=== PATIENT | female | born 1995 | race Caucasian/White ===

== ENCOUNTER 2016-08-08 00:09 | Emergency (ER) | payer MEDICAID, OTHER ==
[~2016-08-08] VITALS: Ht 162.6 cm; Wt 60.0 kg
[~2016-08-08 00:09] MED LIST: AUGM875T PO
[2016-08-08 00:12] VITALS: BP 121/67; PULSE 94; RESP 20; TEMP 98.6; O2SAT 98
[2016-08-08 03:04] LABS: AUTOMATED NEUTROPHIL # 3.6 TH/MM3 (1.8-7.7); BASOPHIL # 0.1 TH/MM3 (0-0.2); BASOPHIL % 1.3 % (0.0-2.0); EOSINOPHIL # 0.2 TH/MM3 (0-0.4); HEMATOCRIT 39.2 % (35.0-46.0); HEMO FLAGS DIFF FINAL; LYMPH % 42.6 % (9.0-44.0); LYMPHOCYTE # 3.4 TH/MM3 (1.0-4.8); MEAN CELL VOLUME 85.3 FL (80.0-100.0); MEAN CORPUSCULAR HEMOGLOBIN 29.9 PG (27.0-34.0); MEAN CORPUSCULAR HGB CONC 35.1 % (32.0-36.0); MONO % 8.8 % (0.0-8.0); NEUT % 45.3 % (16.0-70.0); PLATELET COUNT 204 TH/MM3 (150-450); RED CELL DISTRIBUTION WIDTH 15.7 % (11.6-17.2); WHITE BLOOD COUNT 7.9 TH/MM3 (4.0-11.0)
[2016-08-08 03:10] LABS: BLOOD, URINE NEG (NEG); GLUCOSE,URINE NEG (NEG); KETONE, URINE NEG (NEG); NITRITE,URINE NEG (NEG); PH, URINE 6.5 (5.0-8.5); SQUAMOUS EPITHELIAL CELL URINE 1 /hpf (0-5); URINE COLOR LIGHT-YELLOW (YELLW/STRAW)
[2016-08-08 03:23] LABS: ALT (GPT) 19 U/L (9-42); ANION GAP 7 MEQ/L (5-15); AST (GOT) 11 U/L (16-38); BLOOD UREA NITROGEN 13 MG/DL (7-18); CHLORIDE 108 MEQ/L (98-107); COMMENT (UR) CULT NOT INDICATED; CULTURE IF INDICATED CULT NOT INDICATED; GLOMERULAR FILTRATION RATE 125 ML/MIN (>89); POTASSIUM 3.4 MEQ/L (3.5-5.1); SODIUM (NA) 141 MEQ/L (136-145)
[2016-08-08 03:25] LABS: ALKALINE PHOSPHATASE 60 U/L (45-117); TOTAL BILIRUBIN ADULT 0.5 MG/DL (0.2-1.0)
--- NOTE | 2016-08-08 03:31 | PD ---
HPI Chief Complaint: [employer] Management Keyholder Problem/Complaint Time Seen by Provider: 03:31 Travel History International Travel<30 days: No Contact w/Intl Traveler<30days: No Traveled to known affect area: No History of Present Illness HPI 20-year-old female presents to the emergency department for multiple complaints. Patient complains of headache that occurs sporadically seconds in duration sharp in nature and is unable to identify exacerbating or alleviating factors. Patient also complains of nasal congestion that she's had for several months and is concerned that she may have a cold or allergies. Patient also complains of lower abdominal pain and pelvic pain. Patient reports she has had ectopic pregnancies in the past 3 no longer has a left ovary and her last period was one month ago and she continues to remain sexually active without contraception. Patient denies dysuria frequency or urgency. Patient's had no fever or chills. Patient denies any sudden onset worst of her thunderclap headache. Patient has had nasal congestion no sore throat no earache no productive cough no shortness of breath no pleuritic pain no chest pain no generalized abdominal pain no flank pain dysuria frequency urgency or hematuria. Patient also denies abnormal vaginal discharge or abnormal vaginal bleeding. Patient rates pain when present 6-7/10 in intensity. Patient is unable to identify exacerbating or alleviating factors. PFSH Past Medical History Narrative Medical Anxiety depression left oophorectomy alcohol withdrawal seizure AB 3; tobacco use; nursing notes reviewed ADHD: No Autoimmune Disease: No Anxiety: Yes Depression: Yes Cancer: No Cardiovascular Problems: No Developmental Delay: No Diabetes: No Diminished Hearing: No Gastrointestinal Disorders: No Genitourinary: No Musculoskeletal: No Psychiatric: Yes (DEPRESSION) Respiratory: No Immunizations Current: Yes Migraines: No Seizures: Yes (from alcohol abuse) Thyroid Disease: No Ulcer: No Tetanus Vaccination: Unknown Influenza Vaccination: No PNEUMOCCOCAL Vaccine (Year): 3 ?: Unknown LMP: 07/06/16 : 4 Para: 0 Miscarriage: 3 Ectopic : Yes (X3 LT TUBE REMOVAL) Dilation and Curettage (D&C): Yes (03/2012) Past Surgical History Pacemaker: No Other Surgery: Yes (d&c) Social History Alcohol Use: Yes (TWICE WEEKLY) Tobacco Use: Yes (2 PPD) Substance Use: No Allergies-Medications (Allergen,Severity, Reaction): Coded Allergies: Latex (Verified Allergy, Severe, RASH, 08/08/16) Reported Meds & Prescriptions Reported Meds & Active Scripts Active Anaprox DS (Naproxen Sodium) 550 Mg Tab 550 Mg PO Q12HR PRN Review of Systems Except as stated in HPI: all other systems reviewed are Neg General / Constitutional: No: Fever, Chills Eyes: No: Diploplia, Visual changes HENT: Positive: Headaches, Congestion, No: Vertigo, Lightheadedness, Sore Throat, Rhinorrhea, Nosebleed, Neck Pain Cardiovascular: No: Chest Pain or Discomfort Respiratory: No: Shortness of Breath Gastrointestinal: Positive: Abdominal Pain, No: Nausea, Vomiting, Diarrhea Genitourinary: No: Urgency, Frequency, Dysuria, Decreased Urinary Output, Pelvic Pain, Flank Pain Musculoskeletal: No: Myalgias, Arthralgias Skin: No Rash Neurologic: No: Weakness Psychiatric: No: Anxiety, Substance Abuse Hematologic/Lymphatic: No: Lymph Node Enlargement Physical Exam Narrative GENERAL: Well-developed well-nourished female in no acute distress no respiratory distress SKIN: Warm and dry. HEAD: Atraumatic. Normocephalic. EYES: Pupils equal and round. No scleral icterus. No injection or drainage. ENT: No nasal bleeding or discharge. Mucous membranes pink and moist. NECK: Trachea midline. No JVD. No meningismus no nuchal rigidity CARDIOVASCULAR: Regular rate and rhythm. RESPIRATORY: No accessory muscle use. Clear to auscultation. Breath sounds equal bilaterally. GASTROINTESTINAL: Abdomen soft, non-tender, nondistended. Hepatic and splenic margins not palpable. Pelvic exam: Normal external exam no redness induration or lesions; speculum exam scant white mucus otherwise no clots no blood no tissue cervical os closed; bimanual exam no adnexal mass or tenderness no uterine enlargement no cervical motion tenderness. MUSCULOSKELETAL: Extremities without clubbing, cyanosis, or edema. No obvious deformities. NEUROLOGICAL: Awake and alert. No obvious cranial nerve deficits. Motor grossly within normal limits. Five out of 5 muscle strength in the arms and legs. Normal speech. PSYCHIATRIC: Appropriate mood and affect; insight and judgment normal. Data Data Last Documented VS Vital Signs Date Time Temp Pulse Resp B/P Pulse Ox O2 Delivery O2 Flow Rate FiO2 08/08/16 05:08 18 08/08/16 04:26 68 97/52 97 08/08/16 00:12 98.6 Orders Ed Urine Pregnancytest Poc (08/08/16 02:22) Complete Blood Count With Diff (08/08/16 02:39) Comprehensive Metabolic Panel (08/08/16 02:39) Gc And Chlamydia Pcr (08/08/16 02:39) Wet Prep Profile (08/08/16 02:39) Urinalysis - C+S If Indicated (08/08/16 02:39) Iv Access Insert/Monitor (08/08/16 02:39) Ketorolac Inj (Toradol Inj) (08/08/16 03:45) Labs Laboratory Tests Test 08/08/16 08/08/16 02:50 03:25 White Blood Count 7.9 TH/MM3 Red Blood Count 4.60 MIL/MM3 Hemoglobin 13.8 GM/DL Hematocrit 39.2 % Mean Corpuscular Volume 85.3 FL Mean Corpuscular Hemoglobin 29.9 PG Mean Corpuscular Hemoglobin 35.1 % Concent Red Cell Distribution Width 15.7 % Platelet Count 204 TH/MM3 Mean Platelet Volume 8.9 FL Neutrophils (%) (Auto) 45.3 % Lymphocytes (%) (Auto) 42.6 % Monocytes (%) (Auto) 8.8 % Eosinophils (%) (Auto) 2.0 % Basophils (%) (Auto) 1.3 % Neutrophils # (Auto) 3.6 TH/MM3 Lymphocytes # (Auto) 3.4 TH/MM3 Monocytes # (Auto) 0.7 TH/MM3 Eosinophils # (Auto) 0.2 TH/MM3 Basophils # (Auto) 0.1 TH/MM3 CBC Comment DIFF FINAL Differential Comment Urine Color LIGHT-YELLOW Urine Turbidity CLEAR Urine pH 6.5 Urine Specific [place] 1.005 Urine Protein NEG mg/dL Urine Glucose (UA) NEG mg/dL Urine Ketones NEG mg/dL Urine Occult Blood NEG Urine Nitrite NEG Urine Bilirubin NEG Urine Urobilinogen LESS THAN 2.0 MG/DL Urine Leukocyte Esterase NEG Urine RBC LESS THAN 1 /hpf Urine WBC LESS THAN 1 /hpf Urine Squamous Epithelial 1 /hpf Cells Microscopic Urinalysis Comment CULT NOT INDICATED Sodium Level 141 MEQ/L Potassium Level 3.4 MEQ/L Chloride Level 108 MEQ/L Carbon Dioxide Level 26.0 MEQ/L Anion Gap 7 MEQ/L Blood Urea Nitrogen 13 MG/DL Creatinine 0.61 MG/DL Estimat Glomerular Filtration 125 ML/MIN Rate Random Glucose 88 MG/DL Calcium Level 8.4 MG/DL Total Bilirubin 0.5 MG/DL Aspartate Amino Transf 11 U/L (AST/SGOT) Alanine Aminotransferase 19 U/L (ALT/SGPT) Alkaline Phosphatase 60 U/L Total Protein 7.3 GM/DL Albumin 3.7 GM/DL Clue Cells (Wet Prep) NONE SEEN Vaginal Trichomonas (Wet Prep) NONE SEEN Vaginal Yeast (Wet Prep) NONE SEEN Chlamydia trachomatis DNA NOT DETECTED (PCR) Neisseria gonorrhoeae DNA NOT DETECTED (PCR) MDM Medical Decision Making Medical Screen Exam Complete: Yes Emergency Medical Condition: Yes Medical Record Reviewed: Yes Interpretation(s) Urinalysis is normal Juppi-zt-[id number] hCG is negative Vital Signs Date Time Temp Pulse Resp B/P Pulse Ox O2 Delivery O2 Flow Rate FiO2 08/08/16 00:12 98.6 94 20 121/67 98 CBC & BMP Diagram 08/08/16 02:50 Chemistries remarkable for mild hypokalemia 3.4 and mild hypocalcemia 8.4 otherwise eyes are normal range Differential Diagnosis UTI, ruptured ovarian cyst, ovarian torsion, ectopic , appendicitis, rhinosinusitis, acute sinusitis, headache-tension versus migraine versus cluster versus vascular versus sinus Narrative Course IV access obtained specimens collected and sent for resulting [id number] hCG negative Patient given Toradol 30 mg IV Patient informed of lab results and values in normal range; patient's questions answered to her satisfaction; patient stable for outpatient management Diagnosis Primary Impression: Pelvic pain Additional Impression: Intermittent headache Referrals: Primary Care Physician Patient Instructions: General Instructions Additional Instructions: Use acetaminophen/Tylenol every 4 as needed for fever 100.4F or greater or for minor pain Use ibuprofen/Advil/Motrin every 6-8 hours as needed for fever 100.4F or greater or for pain associated with inflammation or for moderate pain; do NOT use ibuprofen if taking prescription anaprox ds Return to the emergency department for any concerns or change in condition Increase fluid hydration Follow-up with primary care provider Recommend espi-dnh-ywprzva Flonase per package directions for sinus congestion and seasonal/environmental allergy congestion Recommend Zyrtec 10 mg daily for sinus congestion and seasonal/environmental allergy congestion Med/Other Pt SpecificInfo: Prescription(s) given Scripts Naproxen Sodium DS (Anaprox DS)550 Mg [id number] Mg PO Q12HR PRN (PAIN GREATER THAN 6) #12 TAB Ref 0 Prov:Salome Shaw MD 08/08/16 Disposition: 01 DISCHARGE HOME Condition: Stable Salome Shaw MD Aug 08, 2016 03:31
[2016-08-08] MEDS ORDERED: KETOROLAC TROMETHAMINE 30 MG/ML (IVP) VIAL IV PUSH ONE (03:45)
[2016-08-08 04:26] VITALS: BP 97/52; PULSE 68; RESP 18; O2SAT 97
[2016-08-08] MEDS ORDERED: NAPR550 PO (04:40)
[2016-08-08 05:08] VITALS: RESP 18
[2016-08-08 06:05] LABS: CHLAMYDIA PCR NOT DETECTED (NOT DETECT); NEISSERIA PCR NOT DETECTED (NOT DETECT)
== END 2016-08-08 05:08 | disposition home or self-care (01) ==
LOC: NEPC 00:09
DX: R10.2 Pelvic and perineal pain (principal); R51 Headache; R10.30 Lower abdominal pain, unspecified; F17.210 Nicotine dependence, cigarettes, uncomplicated
CPT/HCPCS: 80053; 81001; 84703; 85025; 87210; 87491; 87591; 96374; 99284; J1885

== ENCOUNTER 2016-08-20 12:43 | Emergency (ER) | payer SELFPAY ==
[~2016-08-20] VITALS: Ht 165.1 cm; Wt 56.0 kg
[~2016-08-20 12:43] MED LIST changes: -AUGM875T PO; +NAPR550 PO
[2016-08-20 12:47] VITALS: BP 114/74; PULSE 75; RESP 16; TEMP 98.1; O2SAT 97
[2016-08-20] MEDS ORDERED: POLY10O RIGHT EYE (13:03)
[2016-08-20] MEDS ORDERED: AZIT250T3 PO (13:03)
[2016-08-20] MEDS ORDERED: BENZ100 PO (13:03)
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
--- NOTE | 2016-08-20 13:38 | RADHPO ---
EXAM DATE/TIME: 08/20/2016 13:07 [facility] COMPARISON: CHEST PA & LAT, April 17, 2012, 20:47. INDICATIONS : Coughing up yellow phlegm for 3 months, eye infection, smoker MEDICAL HISTORY : Cholelithiasis. SURGICAL HISTORY : None. ENCOUNTER: Initial ACUITY: 3 months PAIN SCORE: 0/10 LOCATION: Bilateral chest FINDINGS: PA and lateral views of the chest demonstrate a normal-sized cardiac silhouette. There is no effusion , consolidation, or pneumothorax. The bones and soft tissues demonstrate no acute abnormality. CONCLUSION: No acute cardiopulmonary abnormality is identified. Rylan Hoffman MD on August 20, 2016 at 13:36 Board Certified Radiologist. This report was verified electronically.
== END 2016-08-20 13:56 | disposition home or self-care (01) ==
LOC: PHED 12:43
DX: H10.31 Unspecified acute conjunctivitis, right eye (principal); R05 Cough; Z72.0 Tobacco use; Z86.59 Personal history of other mental and behavioral disorders; Z86.69 Personal history of other diseases of the nervous system and sense organs
CPT/HCPCS: 71020; 99283

== ENCOUNTER 2016-12-05 13:29 | Emergency (ER) | payer SELFPAY ==
[~2016-12-05] VITALS: Ht 162.6 cm; Wt 52.0 kg
[~2016-12-05 13:29] MED LIST changes: +AZIT250T3 PO; +BENZ100 PO; -NAPR550 PO; +POLY10O RIGHT EYE
[2016-12-05 13:30] VITALS: BP 121/77; PULSE 103; RESP 16; TEMP 98.1; O2SAT 100
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
== END 2016-12-05 18:00 | disposition home or self-care (01) ==
LOC: NEPD 13:29
DX: T76.21XA Adult sexual abuse, suspected, initial encounter (principal); F41.9 Anxiety disorder, unspecified; F32.9 Major depressive disorder, single episode, unspecified; J44.9 Chronic obstructive pulmonary disease, unspecified; R56.9 Unspecified convulsions; F17.210 Nicotine dependence, cigarettes, uncomplicated
CPT/HCPCS: 99281

== ENCOUNTER 2016-12-23 14:22 | Emergency (ER) | payer OTHER ==
[~2016-12-23] VITALS: Ht 167.6 cm; Wt 54.1 kg
[2016-12-23 14:28] VITALS: BP 131/81; PULSE 104; RESP 16; TEMP 98.4; O2SAT 100
--- NOTE | 2016-12-23 16:21 | EKG ---
Date Performed: 12/23/2016 Time Performed: 14:35:48 PTAGE: 20 years EKG: Sinus rhythm WITH SINUS ARRHYTHMIA NONDIAGNOSTIC INFERIOR Q WAVES PREVIOUS TRACING : 06/28/2010 08.55 No significant change from previous tracing noted. DOCTOR: Daniel Trinidad Interpretating Date/Time 12/23/2016 16:19:34
[2016-12-23 16:30] VITALS: BP 119/78; PULSE 63; RESP 16; O2SAT 100
--- NOTE | 2016-12-23 16:57 | PD ---
HPI Chief Complaint: Respiratory Symptoms Time Seen by Provider: 16:34 Travel History International Travel<30 days: No Contact w/Intl Traveler<30days: No Traveled to known affect area: No History of Present Illness HPI This 20-year-old female is complaining of some precordial chest pain. The pain is aggravated by movements of her arms in certain trunk. This been going on for several days. It's actually less now that has been before. She does smoke cigarettes. She has no history of DVT. She has a chronic cough. PFSH Past Medical History Hx Anticoagulant Therapy: No ADHD: No Autoimmune Disease: No Anxiety: Yes Depression: Yes Cancer: No Cardiovascular Problems: No COPD: Yes Developmental Delay: No Diabetes: No Diminished Hearing: No Gastrointestinal Disorders: No Genitourinary: No Musculoskeletal: No Psychiatric: Yes (DEPRESSION) Respiratory: Yes (COPD) Immunizations Current: Yes Migraines: No Seizures: Yes (from alcohol abuse) Thyroid Disease: No Ulcer: No Tetanus Vaccination: > 5 Years Influenza Vaccination: No PNEUMOCCOCAL Vaccine (Year): 3 ?: Not : 4 Para: 0 Miscarriage: 3 Ectopic : Yes (X3 LT TUBE REMOVAL & left ovary removed) Dilation and Curettage (D&C): Yes (03/2012) Past Surgical History Gynecologic Surgery: Yes (left ovary and fallopian tubes removed) Pacemaker: No Other Surgery: Yes (d&c) Social History Alcohol Use: Yes (socially beer) Tobacco Use: Yes (6-7-cigars/cigs) Substance Use: No Allergies-Medications (Allergen,Severity, Reaction): Coded Allergies: Latex (Verified Allergy, Severe, RASH, 12/23/16) Reported Meds & Prescriptions Reported Meds & Active Scripts Active Review of Systems General / Constitutional: No: Fever, Chills Eyes: No: Diploplia, Blurred Vision HENT: No: Headaches Cardiovascular: Positive: Chest Pain or Discomfort Respiratory: Positive: Cough Gastrointestinal: No: Vomiting, Diarrhea Genitourinary: No: Urgency, Frequency Musculoskeletal: No: Myalgias, Arthralgias Skin: No Rash Neurologic: No: Weakness Psychiatric: Positive: Anxiety Hematologic/Lymphatic: No: Easy Bruising Physical Exam Narrative GENERAL: Well-developed female SKIN: Focused skin assessment warm/dry. HEAD: Atraumatic. Normocephalic. EYES: Pupils equal and round. No scleral icterus. No injection or drainage. ENT: No nasal bleeding or discharge. Mucous membranes pink and moist. NECK: Trachea midline. No JVD. CARDIOVASCULAR: Regular rate and rhythm. No murmur appreciated. RESPIRATORY: No accessory muscle use. Occasional rhonchi Breath sounds equal bilaterally. There is some precordial chest wall tenderness GASTROINTESTINAL: Abdomen soft, non-tender, nondistended. Hepatic and splenic margins not palpable. MUSCULOSKELETAL: No obvious deformities. No clubbing. No cyanosis. No edema. NEUROLOGICAL: Awake and alert. No obvious cranial nerve deficits. Motor grossly within normal limits. Normal speech. PSYCHIATRIC: Appropriate mood and affect; insight and judgment normal. Data Data Last Documented VS Vital Signs Date Time Temp Pulse Resp B/P Pulse Ox O2 Delivery O2 Flow Rate FiO2 12/23/16 17:15 55 14 125/85 100 Room Air 12/23/16 14:28 98.4 Orders Electrocardiogram (12/23/16 14:27) Electrocardiogram (12/23/16 16:41) Complete Blood Count With Diff (12/23/16 16:41) Comprehensive Metabolic Panel (12/23/16 16:41) Chest, Pa & Lat (12/23/16 16:41) Ed Urine Pregnancytest Poc (12/23/16 16:41) Labs Laboratory Tests Test 12/23/16 17:10 White Blood Count 8.1 TH/MM3 Red Blood Count 4.98 MIL/MM3 Hemoglobin 15.0 GM/DL Hematocrit 44.3 % Mean Corpuscular Volume 88.9 FL Mean Corpuscular Hemoglobin 30.1 PG Mean Corpuscular Hemoglobin 33.8 % Concent Red Cell Distribution Width 14.0 % Platelet Count 288 TH/MM3 Mean Platelet Volume 8.0 FL Neutrophils (%) (Auto) 49.7 % Lymphocytes (%) (Auto) 39.5 % Monocytes (%) (Auto) 7.5 % Eosinophils (%) (Auto) 1.9 % Basophils (%) (Auto) 1.4 % Neutrophils # (Auto) 4.0 TH/MM3 Lymphocytes # (Auto) 3.2 TH/MM3 Monocytes # (Auto) 0.6 TH/MM3 Eosinophils # (Auto) 0.2 TH/MM3 Basophils # (Auto) 0.1 TH/MM3 CBC Comment DIFF FINAL Differential Comment Sodium Level 142 MEQ/L Potassium Level 3.7 MEQ/L Chloride Level 107 MEQ/L Carbon Dioxide Level 27.4 MEQ/L Anion Gap 8 MEQ/L Blood Urea Nitrogen 6 MG/DL Creatinine 0.62 MG/DL Estimat Glomerular Filtration 123 ML/MIN Rate Random Glucose 85 MG/DL Calcium Level 9.4 MG/DL Total Bilirubin 0.9 MG/DL Aspartate Amino Transf 19 U/L (AST/SGOT) Alanine Aminotransferase 25 U/L (ALT/SGPT) Alkaline Phosphatase 65 U/L Total Protein 7.8 GM/DL Albumin 4.1 GM/DL [facility] Medical Decision Making Medical Screen Exam Complete: Yes Emergency Medical Condition: Yes Medical Record Reviewed: Yes Differential Diagnosis Differential includes anxiety, chest wall pain, coronary artery disease, pericarditis Narrative Course EKG shows normal sinus rhythm. Chest x-ray negative. CBC is unremarkable. Impression is atypical chest pain. Pattern is not suspicious for coronary artery disease and more suggestive of chest wall pain Diagnosis Primary Impression: Atypical chest pain Disposition: 01 DISCHARGE HOME Condition: Stable Toney Casey MD Dec 23, 2016 16:57
[2016-12-23 17:15] VITALS: BP 125/85; PULSE 55; RESP 14; O2SAT 100
[2016-12-23 17:20] LABS: BASOPHIL # 0.1 TH/MM3 (0-0.2); BASOPHIL % 1.4 % (0.0-2.0); EOSINOPHIL # 0.2 TH/MM3 (0-0.4); EOSINOPHIL % 1.9 % (0.0-4.0); HEMATOCRIT 44.3 % (35.0-46.0); HEMO FLAGS DIFF FINAL; LYMPH % 39.5 % (9.0-44.0); LYMPHOCYTE # 3.2 TH/MM3 (1.0-4.8); MEAN CELL VOLUME 88.9 FL (80.0-100.0); MEAN CORPUSCULAR HEMOGLOBIN 30.1 PG (27.0-34.0); MEAN CORPUSCULAR HGB CONC 33.8 % (32.0-36.0); MONO % 7.5 % (0.0-8.0); NEUT % 49.7 % (16.0-70.0); PLATELET COUNT 288 TH/MM3 (150-450); RED BLOOD COUNT 4.98 MIL/MM3 (4.00-5.30); WHITE BLOOD COUNT 8.1 TH/MM3 (4.0-11.0)
[2016-12-23 17:29] LABS: CHLORIDE 107 MEQ/L (98-107); POTASSIUM 3.7 MEQ/L (3.5-5.1); SODIUM (NA) 142 MEQ/L (136-145)
[2016-12-23 17:32] LABS: ANION GAP 8 MEQ/L (5-15); BICARBONATE 27.4 MEQ/L (21.0-32.0); BLOOD UREA NITROGEN 6 MG/DL (7-18)
[2016-12-23 17:35] LABS: ALT (GPT) 25 U/L (9-42); AST (GOT) 19 U/L (16-38)
[2016-12-23 17:36] LABS: GLOMERULAR FILTRATION RATE 123 ML/MIN (>89)
[2016-12-23 17:37] LABS: TOTAL BILIRUBIN ADULT 0.9 MG/DL (0.2-1.0)
[2016-12-23 17:38] LABS: ALKALINE PHOSPHATASE 65 U/L (45-117)
--- NOTE | 2016-12-23 17:47 | RADRPT ---
EXAM DATE/TIME: 12/23/2016 17:28 [facility] COMPARISON: CHEST PA & LAT, August 20, 2016, 13:07. INDICATIONS : Chest pressure for several days. Cough for 4 days. MEDICAL HISTORY : Chronic obstructive pulmonary disease. SURGICAL HISTORY : Left ovary and fallopian tube removed. ENCOUNTER: Initial ACUITY: 4 - 6 days PAIN SCORE: 3/10 LOCATION: Bilateral chest FINDINGS: The lungs are clear without infiltrate, nodule, or mass. There is no appreciable pleural effusion fo r technique. Heart and mediastinum are unremarkable. CONCLUSION: No acute cardiopulmonary disease. Chely Reeves MD on December 23, 2016 at 17:44 Board Certified Radiologist. This report was verified electronically.
--- NOTE | 2016-12-23 22:33 | EKG ---
Date Performed: 12/23/2016 Time Performed: 17:03:52 PTAGE: 20 years EKG: SINUS BRADYCARDIA BORDERLINE ECG PREVIOUS TRACING : 12/23/2016 14.35 No significant change from previous tracing noted. DOCTOR: Daniel Trinidad Interpretating Date/Time 12/23/2016 22:31:00
== END 2016-12-23 18:25 | disposition home or self-care (01) ==
LOC: PHED 14:22
DX: R07.89 Other chest pain (principal); F17.210 Nicotine dependence, cigarettes, uncomplicated
CPT/HCPCS: 71020; 80053; 84703; 85025; 93005; 99285

== ENCOUNTER 2017-05-19 21:22 | Emergency (ER) | payer MEDICAID, OTHER ==
[2017-05-19 21:24] VITALS: BP 143/83; PULSE 104; RESP 24; TEMP 98.4; O2SAT 100
--- NOTE | 2017-05-19 22:12 | RADRPT ---
EXAM DATE/TIME: 05/19/2017 21:46 [place] COMPARISON: CHEST PA & LAT, December 23, 2016, 17:28. INDICATIONS : Cough and short of breath for 1 week. MEDICAL HISTORY : Chronic obstructive pulmonary disease. SURGICAL HISTORY : None. ENCOUNTER: Initial ACUITY: 1 week PAIN SCORE: 5/10 LOCATION: Bilateral chest. FINDINGS: PA and lateral views of the chest demonstrate the lungs to be symmetrically aerated without evidence of mass, infiltrate or effusion. The cardiomediastinal contours are unremarkable. Osseous structure s are intact. CONCLUSION: No acute disease. Mike Olea MD on May 19, 2017 at 22:10 Board Certified Radiologist. This report was verified electronically.
[2017-05-19 23:53] VITALS: BP 133/80; PULSE 85; RESP 18; O2SAT 100
--- NOTE | 2017-05-20 00:42 | PD ---
HPI Chief Complaint: Respiratory Symptoms Time Seen by Provider: 00:42 Travel History International Travel<30 days: No Contact w/Intl Traveler<30days: No Traveled to known affect area: No History of Present Illness HPI 21-year-old female came to the emergency room with history of cough for past 5 days. Patient says she cannot stop coughing and now bringing up yellowish colored sputum. She's been diagnosed with COPD. Patient is a smoker. No history of fever or chills. Patient was slightly tachycardic upon arrival. She does not have any inhalers at home. She continues to smoke. No known sick contacts. PFSH Past Medical History Narrative Medical List of her past medical, surgical, social and family history is reviewed from the nursing note. Hx Anticoagulant Therapy: No ADHD: No Autoimmune Disease: No Anxiety: Yes Depression: Yes Cancer: No Cardiovascular Problems: No COPD: Yes Developmental Delay: No Diabetes: No Diminished Hearing: No Gastrointestinal Disorders: No Genitourinary: No Musculoskeletal: No Psychiatric: Yes (DEPRESSION) Respiratory: Yes (COPD) Immunizations Current: Yes Migraines: No Seizures: Yes (from alcohol abuse, pt states only 1 seizure in her life) Thyroid Disease: No Ulcer: No Tetanus Vaccination: Unknown Influenza Vaccination: No PNEUMOCCOCAL Vaccine (Year): 3 ?: Not LMP: 05/04/2017 : 4 Para: 0 Miscarriage: 3 Ectopic : Yes (X3 LT TUBE REMOVAL & left ovary removed) Dilation and Curettage (D&C): Yes (03/2012) Past Surgical History Gynecologic Surgery: Yes (left ovary and fallopian tubes removed) Pacemaker: No Other Surgery: Yes (d&c) Social History Alcohol Use: Yes (socially beer) Tobacco Use: Yes (6-7-cigars/cigs) Substance Use: Yes ("snort coke from time to time" 2 days ago) Allergies-Medications (Allergen,Severity, Reaction): Coded Allergies: latex (Unverified Allergy, Severe, RASH, 01/26/17) Comments List of her allergies reviewed from the nursing note. Reported Meds & Prescriptions Reported Meds & Active Scripts Active Prednisone 20 Mg Tab 20 Mg PO BID 5 Days Ventolin Hfa 18 GM Inh (Albuterol Sulfate) 90 Mcg/Act Aer 2 Puff INH Q4-6H PRN Narrative Medication List of her home medications reviewed from the nursing note. Review of Systems Except as stated in HPI: all other systems reviewed are Neg Respiratory: Positive: Cough Physical Exam Narrative GENERAL: Awake, alert, mild distress SKIN: Focused skin assessment warm/dry. HEAD: Atraumatic. Normocephalic. EYES: Pupils equal and round. No scleral icterus. No injection or drainage. ENT: No nasal bleeding or discharge. Mucous membranes pink and moist. NECK: Trachea midline. No JVD. CARDIOVASCULAR: Regular rate and rhythm. No murmur appreciated. RESPIRATORY: No accessory muscle use. Clear to auscultation. Breath sounds equal bilaterally. GASTROINTESTINAL: Abdomen soft, non-tender, nondistended. Hepatic and splenic margins not palpable. MUSCULOSKELETAL: No obvious deformities. No clubbing. No cyanosis. No edema. NEUROLOGICAL: Awake and alert. No obvious cranial nerve deficits. Motor grossly within normal limits. Normal speech. PSYCHIATRIC: Appropriate mood and affect; insight and judgment normal. Data Data Last Documented VS Orders Orders Chest, Pa & Lat (05/19/17 ) Albuterol Neb (Albuterol Neb) (05/20/17 01:00) Prednisone (Deltasone) (05/20/17 01:00) Albuterol Neb (Albuterol Neb) (05/20/17 01:03) Ed Discharge Order (05/20/17 01:32) [facility] Medical Decision Making Medical Screen Exam Complete: Yes Emergency Medical Condition: Yes Medical Record Reviewed: Yes Differential Diagnosis COPD exacerbation, bronchitis Narrative Course 1:30 AM patient was given 2 albuterol nebulizer. I will discharge her home. Procedures EKG Prior to Arrival: No Diagnosis Primary Impression: Bronchitis Referrals: Primary Care Physician Additional Instructions: You should quit smoking in order to get better. Take the medication as per the prescription direction. Return to the ER if the condition worsens or any other new concerns. Follow-up with your primary care. Med/Other Pt SpecificInfo: Prescription(s) given Scripts Prednisone (Prednisone) 20 Mg Tab 20 MG PO BID for 5 Days, #10 TAB 0 Refills Prov: Romeo Ji MD 05/20/17 Albuterol 18 GM Inh (Ventolin Hfa 18 GM Inh) 90 Mcg/Act Aer 2 PUFF INH Q4-6H Y for SHORTNESS OF BREATH, #1 INHALER 0 Refills Prov: Romeo Ji MD 05/20/17 Disposition: 01 DISCHARGE HOME Condition: Stable Romeo Ji MD May 20, 2017 00:42
[2017-05-20] MEDS ORDERED: predniSONE 20 MG TAB PO ONE (01:00)
[2017-05-20] MEDS ORDERED: RESP: ALBUTEROL 2.5 MG/3 ML NEB (PRN) ONE (01:03)
[2017-05-20 01:05] VITALS: O2SAT 100
[2017-05-20] MEDS: RESP: ALBUTEROL 2.5 MG/3 ML NEB (SCH) INH (01:05)
[2017-05-20] MEDS ORDERED: VENTAER INH (01:32)
[2017-05-20] MEDS ORDERED: PRED20 PO (01:32)
== END 2017-05-20 01:42 | disposition home or self-care (01) ==
LOC: NEPE 21:22
DX: J44.9 Chronic obstructive pulmonary disease, unspecified (principal); R00.0 Tachycardia, unspecified; F17.210 Nicotine dependence, cigarettes, uncomplicated
CPT/HCPCS: 71020; 94640; 94664; 99284; J7512; J7613

== ENCOUNTER 2017-07-15 13:02 | Emergency (ER) | payer MEDICAID ==
[~2017-07-15] VITALS: Ht 162.6 cm; Wt 58.0 kg
[~2017-07-15 13:02] MED LIST changes: -AZIT250T3 PO; -BENZ100 PO; -POLY10O RIGHT EYE; +PRED20 PO; +VENTAER INH
[2017-07-15 13:09] VITALS: BP 112/74; PULSE 88; RESP 16; TEMP 98.3; O2SAT 98
[2017-07-15] MEDS ORDERED: AZIT250T3 PO (13:20)
[2017-07-15] MEDS ORDERED: BENZ100 PO (13:20)
[2017-07-15] MEDS ORDERED: PRED20 PO (13:20)
--- NOTE | 2017-07-15 13:24 | PD ---
HPI Chief Complaint: Cold / Flu Symptoms Time Seen by Provider: 13:15 Travel History International Travel<30 days: No Contact w/Intl Traveler<30days: No Traveled to known affect area: No History of Present Illness HPI 21-year-old female that presents to the ED for evaluation of cold-like symptoms for one week. Per patient she has a small child that was recently diagnosed with the flu and she is getting better but the patient herself has had symptoms for a week with body aches, fever on and off as well as hot flashes and cough and congestion. Denies any chest pain. Denies any recent travel. No urinary or bowel movement issues. Unsure if she could be . Pain is 4 out of 10 and body aches. Some sore throat. Cough is productive. She does state that she has a history of COPD and does smoke. She has inhalers and has had to use them more often. . Has been taking of the [place] with minimal relief. No other medical issues. PFSH Past Medical History Hx Anticoagulant Therapy: No ADHD: No Autoimmune Disease: No Anxiety: Yes Depression: Yes Cancer: No Cardiovascular Problems: No COPD: Yes Developmental Delay: No Diabetes: No Diminished Hearing: No Gastrointestinal Disorders: No Genitourinary: No Musculoskeletal: No Psychiatric: Yes (DEPRESSION) Respiratory: Yes (COPD) Immunizations Current: Yes Migraines: No Seizures: Yes (from alcohol abuse, pt states only 1 seizure in her life) Thyroid Disease: No Ulcer: No PNEUMOCCOCAL Vaccine (Year): 3 ?: Unknown : 4 Para: 0 Miscarriage: 3 Ectopic : Yes (X3 LT TUBE REMOVAL & left ovary removed) Dilation and Curettage (D&C): Yes (03/2012) Past Surgical History Gynecologic Surgery: Yes (left ovary and fallopian tubes removed) Pacemaker: No Other Surgery: Yes (d&c) Social History Alcohol Use: Yes (socially beer) Tobacco Use: Yes (6-7-cigars/cigs) Substance Use: Yes ("snort coke from time to time" 2 days ago) Allergies-Medications (Allergen,Severity, Reaction): Coded Allergies: latex (Unverified Allergy, Severe, RASH, 07/15/17) Reported Meds & Prescriptions Reported Meds & Active Scripts Active Tessalon Perles (Benzonatate) 100 Mg Cap 100 Mg PO TID PRN Azithromycin 250 Mg Tab 250 Mg PO DIRECTED Take 2 tabs (500 mg) on day 1 then 1 tab daily x 4 days. Prednisone 20 Mg Tab 20 Mg PO BID 5 Days Ventolin Hfa 18 GM Inh (Albuterol Sulfate) 90 Mcg/Act Aer 2 Puff INH Q4-6H PRN Review of Systems Except as stated in HPI: all other systems reviewed are Neg Physical Exam Narrative GENERAL: Well-nourished, well-developed patient in no apparent distress. SKIN: Warm and dry. HEAD: Atraumatic. Normocephalic. EYES: Pupils equal and round reactive to light and accommodation. No scleral icterus. No injection or drainage. ENT: No nasal bleeding or discharge. Mucous membranes pink and moist. TMs are clear with no sign of infection or perforation. No mastoid tenderness. Ear canals are intact bilaterally. No lymphadenopathy. Nostril mucosa is red and moist with clear mucus noted. No sinus tenderness to palpation noted. Tonsils are not enlarged or swollen. No ulvua Deviation. Tongue is midline. NECK: Trachea midline. No JVD. No meningeal signs noted CARDIOVASCULAR: Regular rate and rhythm. RESPIRATORY: No accessory muscle use. Clear to auscultation. Breath sounds equal bilaterally. GASTROINTESTINAL: Abdomen soft, non-tender, nondistended. Hepatic and splenic margins not palpable. MUSCULOSKELETAL: Extremities without clubbing, cyanosis, or edema. No obvious deformities. NEUROLOGICAL: Awake and alert. No obvious cranial nerve deficits. Motor grossly within normal limits. Five out of 5 muscle strength in the arms and legs. Normal speech. PSYCHIATRIC: Appropriate mood and affect; insight and judgment normal. Data Data Last Documented VS Vital Signs Date Time Temp Pulse Resp B/P (MAP) Pulse Ox O2 Delivery O2 Flow Rate FiO2 07/15/17 13:23 16 98 Room Air 07/15/17 13:09 98.3 88 112/74 (87) Orders Orders Influenzae A/B Antigen (07/15/17 13:19) Ed Urine Pregnancytest Poc (07/15/17 13:19) MDM Medical Decision Making Medical Screen Exam Complete: Yes Emergency Medical Condition: Yes Medical Record Reviewed: Yes Interpretation(s) influenza is negative Differential Diagnosis Influenza versus bronchitis versus pneumonia versus viral illness Narrative Course 21-year-old female that presents to the ED for elevation of cold-like symptoms. Patient was properly examined and was found to have signs and symptoms consistent with appears to be likely viral illness. Very likely the influenza. 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 Influenza test showed negative. Patient was reassured. At this time we'll treat with azithromycin, prednisone, Tessalon Perles and told to continue doing inhalers as needed. Told to follow closely with PCP. See ED worsening symptoms. Take OTC meds as needed. Diagnosis Primary Impression: Bronchitis Patient Instructions: General Instructions Departure Forms: Tests/Procedures, Work Release Enter return to work date: Jul 19, 2017 Additional Instructions: Motrin and Tylenol for pain and fever. You can use [id number] antihistamine as well as well as Mucinex as needed for runny nose and congestion. Cough drops for cough as needed. Drink plenty of fluids. Follow-up with PCP. See ED for worsening symptoms. Med/Other Pt SpecificInfo: Prescription(s) given Scripts Benzonatate (Tessalon Perles) 100 Mg Cap 100 MG PO TID Y for COUGH, #15 CAP 0 Refills Prov: Sal Deshpande MD 07/15/17 Azithromycin (Azithromycin) 250 Mg Tab 250 MG PO DIRECTED for Infection, #6 TAB 0 Refills Take 2 tabs (500 mg) on day 1 then 1 tab daily x 4 days. Prov: Sal Deshpande MD 07/15/17 Prednisone (Prednisone) 20 Mg Tab 20 MG PO BID for 5 Days, #10 TAB 0 Refills Prov: Sal Deshpande MD 07/15/17 Disposition: 01 DISCHARGE HOME Condition: Stable Delmar Chaudhary Jul 15, 2017 13:24
== END 2017-07-15 14:09 | disposition home or self-care (01) ==
LOC: PHEFT 13:02
DX: J40 Bronchitis, not specified as acute or chronic (principal); J44.9 Chronic obstructive pulmonary disease, unspecified; F32.9 Major depressive disorder, single episode, unspecified; F17.210 Nicotine dependence, cigarettes, uncomplicated
CPT/HCPCS: 84703; 87804; 99283

== ENCOUNTER 2017-08-17 17:45 | Emergency (ER) | payer MEDICAID ==
[~2017-08-17 17:45] MED LIST changes: +AZIT250T3 PO; +BENZ100 PO
[2017-08-17 18:16] VITALS: BP 107/59; PULSE 112; RESP 18; TEMP 98.3; O2SAT 97
--- NOTE | 2017-08-18 14:52 | PD ---
HPI Chief Complaint: Alcohol/Drug Intoxication Time Seen by Provider: 17:59 Travel History International Travel<30 days: No Contact w/Intl Traveler<30days: No Traveled to known affect area: No History of Present Illness HPI 21-year-old female presents to emergency department for medical clearance. Patient is currently being in a sober living facility. She has been drinking alcohol today. They kicked her out and brought her here. Patient denies suicidal homicidal ideations. States that she did relapse and drank alcohol today. Denies any recent illnesses, fever, or chills. No other symptoms to report. PFSH Past Medical History Hx Anticoagulant Therapy: No ADHD: No Autoimmune Disease: No Anxiety: Yes Depression: Yes Cancer: No Cardiovascular Problems: No COPD: Yes Developmental Delay: No Diabetes: No Diminished Hearing: No Gastrointestinal Disorders: No Genitourinary: No Musculoskeletal: No Psychiatric: Yes (DEPRESSION) Respiratory: Yes (COPD) Immunizations Current: Yes Migraines: No Seizures: Yes (from alcohol abuse, pt states only 1 seizure in her life) Thyroid Disease: No Ulcer: No PNEUMOCCOCAL Vaccine (Year): 3 ?: Unknown : 4 Para: 0 Miscarriage: 3 Ectopic : Yes (X3 LT TUBE REMOVAL & left ovary removed) Dilation and Curettage (D&C): Yes (03/2012) Past Surgical History Gynecologic Surgery: Yes (left ovary and fallopian tubes removed) Oral Surgery: Yes (LEFT JAW SURGERY) Pacemaker: No Other Surgery: Yes (d&c) Social History Alcohol Use: Yes (OCCASIONAL) Tobacco Use: Yes (2 PPD) Substance Use: No (DENIES) Allergies-Medications (Allergen,Severity, Reaction): Coded Allergies: latex (Unverified Allergy, Severe, RASH, 07/15/17) Reported Meds & Prescriptions Reported Meds & Active Scripts Active Tessalon Perles (Benzonatate) 100 Mg Cap 100 Mg PO TID PRN Azithromycin 250 Mg Tab 250 Mg PO DIRECTED Take 2 tabs (500 mg) on day 1 then 1 tab daily x 4 days. Prednisone 20 Mg Tab 20 Mg PO BID 5 Days Ventolin Hfa 18 GM Inh (Albuterol Sulfate) 90 Mcg/Act Aer 2 Puff INH Q4-6H PRN Review of Systems Except as stated in HPI: all other systems reviewed are Neg Physical Exam Narrative Well-nourished female patient. She is able auditory with assistance. She has slurred speech. She has even respirations. Tachycardic heart rate. Patient does move all extremities. Her head is atraumatic. Data Data Last Documented VS Vital Signs Date Time Temp Pulse Resp B/P (MAP) Pulse Ox O2 Delivery O2 Flow Rate FiO2 08/17/17 18:16 98.3 112 18 107/59 (75) 97 Orders Orders Ed Urine Pregnancytest Poc (08/17/17 18:18) [facility] Medical Decision Making Medical Screen Exam Complete: Yes Emergency Medical Condition: Yes Medical Record Reviewed: Yes Differential Diagnosis Intoxication versus polysubstance abuse versus mood disorder versus personality disorder Narrative Course 21-year-old female presents to emergency department for medical clearance. Workup is initiated in triage. Prior to bed placement, patient has left.AMA: The risks of leaving against medical advice without further evaluation treatment were discussed with the patient. These risks include cardiac dysfunction, cardiac dysrhythmia, possible heart attack, possible stroke or . The patient indicated understanding of these risks and appeared to have the capacity to make this decision. Diagnosis Primary Impression: Alcohol dependence Disposition: 07 AGAINST MEDICAL ADVICE Condition: Stable Pamela PresleyP Aug 18, 2017 14:52
== END 2017-08-17 18:12 | disposition left against medical advice (07) ==
LOC: NED 17:45
DX: F10.20 Alcohol dependence, uncomplicated (principal); F41.8 Other specified anxiety disorders; J44.9 Chronic obstructive pulmonary disease, unspecified; F17.210 Nicotine dependence, cigarettes, uncomplicated; R47.81 Slurred speech; R00.0 Tachycardia, unspecified; Z53.21 Procedure and treatment not carried out due to patient leaving prior to being seen by health care provider
CPT/HCPCS: 99281

== ENCOUNTER 2017-11-13 14:11 | Emergency (ER) | payer MEDICAID ==
[~2017-11-13] VITALS: Ht 165.1 cm; Wt 60.0 kg
[2017-11-13 14:20] VITALS: BP 130/59; PULSE 99; RESP 16; TEMP 98.5; O2SAT 98
[2017-11-13] MEDS ORDERED: SODIUM CHLORIDE 0.9% FLUSH 10 ML FLUSH IV FLUSH PRN (15:15)
--- NOTE | 2017-11-13 15:37 | PD ---
Physical Exam Date Seen by Provider: Nov 13, 2017 Narrative This is a patient who is being seen primarily by Monika Morillo NP for lower abdominal pain associated with a vaginal discharge, dysuria, frequency. This patient is very emotional. I have distracted her for abdominal exam. Her abdomen is soft. She reports suprapubic tenderness but there is no guarding or rebound when distracted. There is no point tenderness. Data Data Last Documented VS Vital Signs Date Time Temp Pulse Resp B/P (MAP) Pulse Ox O2 Delivery O2 Flow Rate FiO2 11/13/17 14:20 98.5 99 16 130/59 (82) 98 Orders Orders Complete Blood Count With Diff (11/13/17 15:09) Comprehensive Metabolic Panel (11/13/17 15:09) Lipase (11/13/17 15:09) Prothrombin Time / Inr (Pt) (11/13/17 15:09) Act Partial Throm Time (Ptt) (11/13/17 15:09) Urinalysis - C+S If Indicated (11/13/17 15:09) Iv Access Insert/Monitor (11/13/17 15:09) Sodium Chloride 0.9% Flush (Ns Flush) (11/13/17 15:15) Ed Urine Pregnancytest Poc (11/13/17 15:09) Gc And Chlamydia Pcr (11/13/17 15:21) Wet Prep Profile (11/13/17 15:21) MDM Supervised Visit with ANGEL: Yes Narrative Course I, Dr. Syed, have reviewed the advance practice practitioner's documentation and am in agreement, met with the patient face to face, made the diagnosis, and the medical decision making was done by me. *My assessment and Findings: I suspect that this patient either has urinary tract infection, PID or both. Her pelvic exam will be done by Monika Morillo NP. Further evaluation and treatment will be dependent upon this exam. Scripts No Active Prescriptions or Reported Meds Jaylene Syed MD Nov 13, 2017 15:37
--- NOTE | 2017-11-13 15:52 | PD ---
HPI Chief Complaint: Abdominal Pain Time Seen by Provider: 15:06 Travel History International Travel<30 days: No Contact w/Intl Traveler<30days: No Traveled to known affect area: No History of Present Illness HPI 21-year-old female presents to emergency department with complaint of lower abdominal cramping, abnormal vaginal discharge and foul vaginal odor for 3 days. Denies vaginal rash or lesions. Denies dysuria. Denies fever, vomiting , constipation, diarrhea. History of partial hysterectomy. Otherwise, denies history of other abdominal surgeries. Last menstrual period was in the middle of October. Reports occasional alcohol use. Says that her abnormal vaginal discharge occurs every time she smokes crack cocaine. Reports tobacco use. Rates pain 5/10. Pain is intermittent. Described as cramping. No known relieving factors. Has not taken any medication or try any treatments to alleviate her symptoms. No primary care provider. Denies significant past medical history. Allergies to latex. Has no other medical complaints. No other modifying factors or associated signs and symptoms. PFSH Past Medical History Hx Anticoagulant Therapy: No ADHD: No Autoimmune Disease: No Anxiety: Yes Depression: Yes Cancer: No Cardiovascular Problems: No COPD: Yes Developmental Delay: No Diabetes: No Diminished Hearing: No Gastrointestinal Disorders: No Genitourinary: No Musculoskeletal: No Psychiatric: Yes (DEPRESSION) Respiratory: Yes Immunizations Current: Yes Migraines: No Seizures: Yes (from alcohol abuse, pt states only 1 seizure in her life) Thyroid Disease: No Ulcer: No Tetanus Vaccination: Unknown Influenza Vaccination: No PNEUMOCCOCAL Vaccine (Year): 3 ?: Unknown LMP: 10/16/17 : 4 Para: 0 Miscarriage: 3 Ectopic : Yes (X3 LT TUBE REMOVAL & left ovary removed) Dilation and Curettage (D&C): Yes (03/2012) Past Surgical History Gynecologic Surgery: Yes (left ovary and fallopian tubes removed) Oral Surgery: Yes (LEFT JAW SURGERY) Pacemaker: No Other Surgery: Yes (d&c) Social History Alcohol Use: Yes (SOCIAL/WEEKENDS) Tobacco Use: Yes (1 PPD) Substance Use: Yes (REPORTED SMOKING CRACK FOR THE LAST TWO WEEKS) Allergies-Medications (Allergen,Severity, Reaction): Coded Allergies: latex (Unverified Allergy, Severe, RASH, 11/13/17) Reported Meds & Prescriptions Reported Meds & Active Scripts Active Ibuprofen 800 Mg Tab 800 Mg PO Q6HR PRN Flagyl (Metronidazole) 500 Mg Tab 500 Mg PO BID 14 Days start 11/14/2017 Doxycycline Hyclate 100 Mg Cap 100 Mg PO BID 14 Days Review of Systems Except as stated in HPI: all other systems reviewed are Neg Physical Exam Narrative GENERAL: Well-nourished, well-developed female patient, in no acute distress; afebrile, nontoxic-appearing SKIN: Warm and dry. HEAD: Atraumatic. Normocephalic. EYES: Pupils equal and round. No scleral icterus. No injection or drainage. ENT: Mucous membranes pink and moist. NECK: Trachea midline. No lymphadenopathy. CARDIOVASCULAR: Regular rate RESPIRATORY: No accessory muscle use. GASTROINTESTINAL: Abdomen soft, non-tender, nondistended. Lower mid pelvic region with tenderness on palpation. Hepatic and splenic margins not palpable. No guarding, rigidity, rebound tenderness. PELVIC: Exam done in the presence of a nurse. Speculum exam reveals edematous and erythematous cervix with light green , mucopurulent, foul-smelling discharge. Bimanual exam reveals no palpable masses or adnexa tenderness, no uterine tenderness. Positive cervical motion tenderness. BACK: No CVA tenderness. MUSCULOSKELETAL: No obvious deformities. No clubbing. No cyanosis. No edema. NEUROLOGICAL: Awake and alert. No obvious cranial nerve deficits. Motor grossly within normal limits. Normal speech. PSYCHIATRIC: Appropriate mood and affect; insight and judgment normal. Data Data Last Documented VS Vital Signs Date Time Temp Pulse Resp B/P (MAP) Pulse Ox O2 Delivery O2 Flow Rate FiO2 11/13/17 14:20 98.5 99 16 130/59 (82) 98 Orders Orders Complete Blood Count With Diff (11/13/17 15:09) Comprehensive Metabolic Panel (11/13/17 15:09) Lipase (11/13/17 15:09) Prothrombin Time / Inr (Pt) (11/13/17 15:09) Act Partial Throm Time (Ptt) (11/13/17 15:09) Urinalysis - C+S If Indicated (11/13/17 15:09) Iv Access Insert/Monitor (11/13/17 15:09) Sodium Chloride 0.9% Flush (Ns Flush) (11/13/17 15:15) Ed Urine Pregnancytest Poc (11/13/17 15:09) Gc And Chlamydia Pcr (11/13/17 15:21) Wet Prep Profile (11/13/17 15:21) Azithromycin Powd Pack (Zithromax Powd P (11/13/17 16:00) Ceftriaxone Inj (Rocephin Inj) (11/13/17 16:00) Metronidazole (Flagyl) (11/13/17 16:15) Ed Discharge Order (11/13/17 17:51) Ondansetron Odt (Zofran Odt) (11/13/17 18:00) Labs Laboratory Tests Test 11/13/17 15:30 11/13/17 16:00 White Blood Count 13.2 TH/MM3 Red Blood Count 4.40 MIL/MM3 Hemoglobin 14.6 GM/DL Hematocrit 41.6 % Mean Corpuscular Volume 94.5 FL Mean Corpuscular Hemoglobin 33.1 PG Mean Corpuscular Hemoglobin Concent 35.1 % Red Cell Distribution Width 13.7 % Platelet Count 220 TH/MM3 Mean Platelet Volume 9.8 FL Neutrophils (%) (Auto) 68.2 % Lymphocytes (%) (Auto) 15.9 % Monocytes (%) (Auto) 9.9 % Eosinophils (%) (Auto) 5.3 % Basophils (%) (Auto) 0.7 % Neutrophils # (Auto) 9.0 TH/MM3 Lymphocytes # (Auto) 2.1 TH/MM3 Monocytes # (Auto) 1.3 TH/MM3 Eosinophils # (Auto) 0.7 TH/MM3 Basophils # (Auto) 0.1 TH/MM3 CBC Comment DIFF FINAL Differential Comment Prothrombin Time 10.0 SEC Prothromb Time International Ratio 1.0 RATIO Activated Partial Thromboplast Time 25.1 SEC Urine Color YELLOW Urine Turbidity HAZY Urine pH 6.5 Urine Specific [place] 1.024 Urine Protein TRACE mg/dL Urine Glucose (UA) NEG mg/dL Urine Ketones NEG mg/dL Urine Occult Blood NEG Urine Nitrite NEG Urine Bilirubin NEG Urine Urobilinogen 2.0 MG/DL Urine Leukocyte Esterase MOD Urine RBC 2 /hpf Urine WBC 8 /hpf Urine Squamous Epithelial Cells 4 /hpf Urine Amorphous Sediment MOD Urine Bacteria RARE /hpf Urine Mucus FEW /lpf Microscopic Urinalysis Comment CULT NOT INDICATED Blood Urea Nitrogen 9 MG/DL Creatinine 0.84 MG/DL Random Glucose 74 MG/DL Total Protein 7.7 GM/DL Albumin 3.9 GM/DL Calcium Level 9.3 MG/DL Alkaline Phosphatase 79 U/L Aspartate Amino Transf (AST/SGOT) 23 U/L Alanine Aminotransferase (ALT/SGPT) 21 U/L Total Bilirubin 1.2 MG/DL Sodium Level 140 MEQ/L Potassium Level 4.0 MEQ/L Chloride Level 104 MEQ/L Carbon Dioxide Level 26.5 MEQ/L Anion Gap 10 MEQ/L Estimat Glomerular Filtration Rate 86 ML/MIN Lipase 144 U/L Clue Cells (Wet Prep) PRESENT Vaginal Trichomonas (Wet Prep) NONE SEEN Vaginal Yeast (Wet Prep) NONE SEEN MDM Medical Decision Making Medical Screen Exam Complete: Yes Emergency Medical Condition: Yes Medical Record Reviewed: Yes Differential Diagnosis PID, chlamydia, gonorrhea, trichomonas, BV, cervicitis Narrative Course 21-year-old female physical exam consistent with pelvic inflammatory disease. She is afebrile and nontoxic-appearing. Discussed patient with Dr. Syed and she agrees with my plan of care. CBC, CMP, lipase, urinalysis, wet prep, chlamydia, gonorrhea ordered. 1601: Pelvic exam concludes cervicitis and with positive cervical motion tenderness. Suspecting PID. Patient empirically treated with Rocephin 1 g, azithromycin 1 g, Flagyl 2 g in the ER. WBC mildly elevated at 13.2. Otherwise , CBC unremarkable. Urinalysis without signs of infection. 1745: Positive for bacterial vaginosis. Flagyl, doxycycline, ibuprofen prescribed for home. Instructed patient to follow up with primary care provider. Patient verbalizes understanding and agreement with treatment plan. Patient is medically cleared and stable for discharge. Discussed reasons to return to the emergency department. Patient agrees with treatment plan. The patients vital signs are stable and the patient is stable for outpatient follow- up and treatment. Patient discharged home, stable and in no acute distress. Diagnosis Primary Impression: PID (acute pelvic inflammatory disease) Additional Impression: Bacterial vaginosis Referrals: [facility] Associate [facility] Phys[facility] Patient Instructions: Bacterial Vaginosis (ED), Cervicitis (ED), Chlamydia (ED) , General Instructions, Gonorrhea (ED), Pelvic Inflammatory Disease (ED) Additional Instructions: Avoid sexual activity for 14 days No sexual activity with your partner/s until they have been treated and waited 14 days Inform all sexual partners within the past 3-6 months that they need to be evaluated and treated Use condoms every time you have sex Follow-up with primary care provider Return to the emergency department immediately with worsening of symptoms Med/Other Pt SpecificInfo: Prescription(s) given Scripts Ibuprofen (Ibuprofen) 800 Mg Tab 800 MG PO Q6HR Y for PAIN, #20 TAB 0 Refills Prov: Monika Morillo 11/13/17 Metronidazole (Flagyl) 500 Mg Tab 500 MG PO BID for Infection for 14 Days, #28 TAB 0 Refills start 11/14/2017 Prov: Monika Morillo 11/13/17 Doxycycline Hyclate (Doxycycline Hyclate) 100 Mg Cap 100 MG PO BID for Infection for 14 Days, #28 CAP 0 Refills Prov: Monika Morillo 11/13/17 Disposition: 01 DISCHARGE HOME Condition: Stable Monika Morillo Nov 13, 2017 15:52
[2017-11-13 15:54] LABS: BASOPHIL # 0.1 TH/MM3 (0-0.2); BASOPHIL % 0.7 % (0.0-2.0); EOSINOPHIL # 0.7 TH/MM3 (0-0.4); EOSINOPHIL % 5.3 % (0.0-4.0); HEMATOCRIT 41.6 % (35.0-46.0); HEMOGLOBIN 14.6 GM/DL (11.6-15.3); LYMPH % 15.9 % (9.0-44.0); LYMPHOCYTE # 2.1 TH/MM3 (1.0-4.8); MEAN CELL VOLUME 94.5 FL (80.0-100.0); MEAN CORPUSCULAR HEMOGLOBIN 33.1 PG (27.0-34.0); MEAN CORPUSCULAR HGB CONC 35.1 % (32.0-36.0); MEAN PLATELET VOLUME 9.8 FL (7.0-11.0); MONO % 9.9 % (0.0-8.0); MONOCYTE # 1.3 TH/MM3 (0-0.9); NEUT % 68.2 % (16.0-70.0); PLATELET COUNT 220 TH/MM3 (150-450); RED CELL DISTRIBUTION WIDTH 13.7 % (11.6-17.2); WHITE BLOOD COUNT 13.2 TH/MM3 (4.0-11.0)
[2017-11-13 15:57] LABS: AMORPHOUS SEDIMENT, URINE MOD; BACTERIA, URINE RARE /hpf; BILIRUBIN, URINE NEG (NEG); BLOOD, URINE NEG (NEG); GLUCOSE,URINE NEG (NEG); KETONE, URINE NEG (NEG); MUCUS URINE FEW /lpf (OCC); NITRITE,URINE NEG (NEG); PH, URINE 6.5 (5.0-8.5); SQUAMOUS EPITHELIAL CELL URINE 4 /hpf (0-5); URINE COLOR YELLOW (YELLW/STRAW); URINE LEUKOCYTE ESTERASE MOD (NEG)
[2017-11-13] MEDS ORDERED: AZITHROMYCIN PWD FOR SUSP 1 GM PACKET PO ONE (16:00)
[2017-11-13] MEDS ORDERED: cefTRIAXone INJ 1,000 MG in SODIUM CHLORIDE 0.9% INJ 100 ML IV ONE (16:00)
[2017-11-13 16:13] LABS: ALBUMIN 3.9 GM/DL (3.4-5.0); AST (GOT) 23 U/L (15-37); BICARBONATE 26.5 MEQ/L (21.0-32.0); BLOOD UREA NITROGEN 9 MG/DL (7-18); CALCIUM 9.3 MG/DL (8.5-10.1); CHLORIDE 104 MEQ/L (98-107); CREATININE 0.84 MG/DL (0.50-1.00); GLOMERULAR FILTRATION RATE 86 ML/MIN (>89); GLUCOSE,RANDOM 74 MG/DL (74-106); SODIUM (NA) 140 MEQ/L (136-145)
[2017-11-13] MEDS ORDERED: metroNIDAZOLE 500 MG TAB PO ONE (16:15)
[2017-11-13 16:17] LABS: ALKALINE PHOSPHATASE 79 U/L (45-117); ALT (GPT) 21 U/L (10-53); TOTAL BILIRUBIN ADULT 1.2 MG/DL (0.2-1.0); TOTAL PROTEIN 7.7 GM/DL (6.4-8.2)
[2017-11-13] MEDS ORDERED: METR-1 PO (17:50)
[2017-11-13] MEDS ORDERED: IBUP1TAB7 PO (17:50)
[2017-11-13] MEDS ORDERED: DOXY100C PO (17:50)
[2017-11-13] MEDS ORDERED: ONDANSETRON ODT 4 MG TAB PO ONE (18:00)
== END 2017-11-13 18:12 | disposition home or self-care (01) ==
LOC: NEPD 14:11
DX: N73.0 Acute parametritis and pelvic cellulitis (principal); N76.0 Acute vaginitis; B96.89 Other specified bacterial agents as the cause of diseases classified elsewhere; F17.210 Nicotine dependence, cigarettes, uncomplicated; F14.90 Cocaine use, unspecified, uncomplicated
CPT/HCPCS: 80053; 81001; 83690; 84703; 85025; 85610; 85730; 87210; 87491; 87591; 96365; 99283; J0696